=== PATIENT | female | born 1970 | race Caucasian/White ===

== ENCOUNTER 2018-08-09 08:17 | Emergency (ER) | payer OTHER ==
[2018-08-09 08:31] VITALS: BP 122/84; PULSE 107; TEMP 98.2; BMI 30.9
[2018-08-09] MEDS ORDERED: MAG HYDROX/AL HYDROX/SIMETH 30 ML UNIT-DOSE CUP PO ONE (09:00)
[2018-08-09] MEDS ORDERED: MAG HYDROX/AL HYDROX/SIMETH 30 ML UNIT-DOSE CUP ONE (09:03)
[2018-08-09] MEDS ORDERED: SODIUM CHLORIDE 1,000 ML IV STA (09:05)
[2018-08-09] MEDS ORDERED: ONDANSETRON *ODT* 4 MG TABLET SL ONE ×2 (09:05→10:48)
[2018-08-09] MEDS ORDERED: FAMOTIDINE 20 MG/50 ML IVPB 20 MG/50 ML MG IVPB ONE ×2 (09:05→09:31)
--- NOTE | 2018-08-09 09:13 | PDOC ---
History of Present Illness - General Chief Complaint: Diarrhea Stated Complaint: NAUSEA DIARRHEA Time Seen by Provider: 08/09/18 08:45 History Source: Patient Exam Limitations: Clinical Condition - History of Present Illness Initial Comments: 08/09/18 09:07 Patient with h/o IBS present with complains of 4 days h/o diarrhea and nausea consistent with her IBS . Patient report 4 episodes of non-bloody watery stools per day . report nausea but no vomiting . Pt also report intermittent epigastric pains from diarrhea. Denies fever, chills, weakness, palpitations, urinary frequency or dysuria. Pt report she was told by brother who also has IBS to come to ED for compazine which helps him with his IBS. Pt denies any other symptoms Timing/Duration: other (4 days) Past History - Past Medical History Allergies/Adverse Reactions: Allergies Allergy/AdvReac Type Severity Reaction Status Date / Time Penicillins Allergy Verified 08/09/18 08:27 Home Medications: Ambulatory Orders Loperamide HCl/Simethicone [Imodium Multi-Symptom Rel Cplt] 1 each PO Q8H PRN # 20 tablet 08/09/18 Ondansetron [Zofran Odt -] 4 mg SL TID PRN #21 od.tablet 08/09/18 Pantoprazole Sodium [Protonix -] 20 mg PO DAILY #7 tablet.ec 08/09/18 COPD: No CHF: No DVT: No Dementia: No HTN: Yes Thyroid Disease: Yes (HYPOTHYROID) - Immunization History Immunization Up to Date: No - Suicide/Smoking/Psychosocial Hx Smoking History: Never smoked Information on smoking cessation initiated: No Hx Alcohol Use: No Drug/Substance Use Hx: No Review of Systems - Review of Systems Able to Perform ROS?: Yes Is the patient limited [place] proficient: No Constitutional: No: Chills, Fever, Malaise HEENTM: No: Symptoms Reported Respiratory: No: Symptoms reported Cardiac (ROS): No: Symptoms Reported, See HPI, Chest Pain, Edema, Irregular Heart Rate, Lightheadedness, Palpitations, Syncope, Chest Tightness, Other ABD/GI: Yes: See HPI, Diarrhea, Nausea, Abdominal cramping (epigastric). No: Abdominal Distended, Abd. Pain w/ defecation, Blood Streaked Bowels, Constipated , Difficulty Swallowing, Poor Appetite, Poor Fluid Intake, Rectal Bleeding, Vomiting, Indigestion, Tarry Stools : No: Burning, Dysuria, Discharge, Frequency, Urgency Musculoskeletal: No: Back Pain Neurological: No: Headache, Numbness, Weakness, Dizziness All Other Systems: Reviewed and Negative *Physical Exam - Vital Signs Last Vital Signs Temp Pulse Resp BP Pulse Ox 98.2 F 107 H 16 122/84 98 08/09/18 08:28 08/09/18 08:28 08/09/18 08:28 08/09/18 08:28 08/09/18 08:28 - Physical Exam Comments: 08/09/18 10:09 GENERAL: Well developed, well nourished. Awake and alert. No acute distress. HEENT: Normocephalic, atraumatic. PERRLA, EOMI. No conjunctival pallor. Sclera are non-icteric. Moist mucous membranes. Oropharynx is clear. NECK: Supple. Full ROM. CARDIOVASCULAR: Regular rate and rhythm. No murmurs, rubs, or gallops. Distal pulses are 2+ and symmetric. PULMONARY: No evidence of respiratory distress. Lungs clear to auscultation bilaterally. No wheezing, rales or rhonchi. ABDOMINAL: Soft. mild epigastric tenderness. Non-distended. No rebound or guarding. No organomegaly. Normoactive bowel sounds. MUSCULOSKELETAL Normal range of motion at all joints. SKIN: Warm and dry. Normal capillary refill. No rashes. No cyanosis. NEUROLOGICAL: Alert, awake, appropriate. Gait is normal without ataxia. PSYCHIATRIC: Cooperative. Good eye contact. Appropriate mood General Appearance: Yes: Nourished, Appropriately Dressed. No: Apparent Distress ED Treatment Course - LABORATORY CBC & Chemistry Diagram: 08/09/18 09:46 08/09/18 09:46 Medical Decision Making - Medical Decision Making 08/09/18 09:10 Patient with h/o IBS present with complains of 4 days h/o diarrhea and nausea consistent with her IBS . Patient report 4 episodes of non-bloody watery stools per day . report nausea but no vomiting . Pt also report intermittent epigastric pains from diarrhea. Denies fever, chills, weakness, palpitations, urinary frequency or dysuria. Pt report she was told by brother who also has IBS to come to ED for compazine which helps him with his IBS. Pt denies any other symptoms Exam significant for mild epigastric TTP with increased diffused bowel sounds. no guarding or rebound on exam. DX: IBS vs cholecystitis vs gastroenteritis CBC, CMP lipase labs ordered. hydration with NS 1L ordered. zofran 4mg SL and pepcid for nausea and epigastric pain reassess after labs 08/09/18 11:36 cbc, cmp ,lipase labs wnl. UA with no significant findings. Patient report feeling better with zofran and hydration. Pt stable for discharge on maalox, loperamide, zofran and protonix with GI follow-up *DC/Admit/Observation/Transfer Diagnosis at time of Disposition: IBS (irritable bowel syndrome) Qualifiers: Irritable bowel syndrome type: with diarrhea Qualified Code(s): K58.0 - Irritable bowel syndrome with diarrhea - Discharge Dispostion Disposition: HOME Condition at time of disposition: Stable Decision to Admit order: No - Prescriptions Prescriptions: Loperamide HCl/Simethicone [Imodium Multi-Symptom Rel Cplt] 1 each PO Q8H PRN # 20 tablet PRN Reason: diarrhea and abdominal pain Ondansetron [Zofran Odt -] 4 mg SL TID PRN #21 od.tablet PRN Reason: nausea Pantoprazole Sodium [Protonix -] 20 mg PO DAILY #7 tablet.ec - Referrals Referrals: Claude Sutton MD [Staff Physician] - - Patient Instructions Printed Discharge Instructions: Irritable Bowel Syndrome Additional Instructions: Your labs was normal .Increase fluid intake. Take medications as prescribed. Follow-up with GI as soon as possible for management of IBS - Post Discharge Activity
[2018-08-09] MEDS ORDERED: ONDANSETRON *ODT* 4 MG TABLET ONE ×2 (09:31→10:52)
[2018-08-09] MEDS ORDERED: PANTOPRAZOLE 40 MG TABLET (FP) PO ONE (09:56)
[2018-08-09 10:00] LABS: BASO % 0.4 % (0-2.0); EOS % 1.5 % (0-4.5); HEMATOCRIT 40.1 % (32.4-45.2); HEMOGLOBIN 13.3 GM/dL (10.7-15.3); MCH 27.9 pg (25.7-33.7); MCHC 33.1 g/dl (32.0-36.0); MEAN CELL VOLUME 84.4 fl (80-96); MEAN PLT VOLUME 9.3 fl (7.5-11.1); MONO % 4.9 % (3.8-10.2); NEUT % 86.2 % (42.8-82.8); PLATELET COUNT 299 K/MM3 (134-434); RBC 4.75 M/mm3 (3.60-5.2); RDW 14.6 % (11.6-15.6); WHITE BLOOD COUNT 10.1 K/mm3 (4.0-10.0)
[2018-08-09] MEDS ORDERED: PANTOPRAZOLE 40 MG TABLET (FP) ONE (10:07)
[2018-08-09 10:52] LABS: EPI CELLS 5.6 /HPF (0-5/HPF); PH,URINE 5.5 (5.0-8.0); URINE APPEARANCE CLEAR; URINE BACTERIA 432.2 /hpf (NEGATIVE); URINE BILIRUBIN NEGATIVE (NEGATIVE); URINE CASTS 4 /lpf (0-8); URINE COLOR YELLOW; URINE GLUCOSE (UA) NEGATIVE (NEGATIVE); URINE KETONE TRACE (NEGATIVE); URINE LEUK ESTERASE NEGATIVE (NEGATIVE); URINE NITRITE NEGATIVE (NEGATIVE); URINE PROTEIN NEGATIVE (NEGATIVE); URINE UROBILINOGEN 0.2 mg/dL (0.2-1.0); URINE WBC 7 /hpf (0-5)
[2018-08-09 11:22] LABS: ALBUMIN 3.8 g/dl (3.4-5.0); ALK PHOS 99 U/L (45-117); ANION GAP 8 MMOL/L (8-16); BILIRUBIN,TOTAL 0.4 mg/dL (0.2-1); BLOOD UREA NITROGEN 12 mg/dL (7-18); CALCIUM 8.3 mg/dL (8.5-10.1); CHLORIDE 108 mmol/L (98-107); CO2 22 mmol/L (21-32); CREATININE 0.7 mg/dL (0.55-1.3); GLUCOSE,RANDOM 105 mg/dL (74-106); LIPASE 173 U/L (73-393); POTASSIUM 4.7 mmol/L (3.5-5.1); SGOT/AST 36 U/L (15-37); SGPT/ALT 22 U/L (13-61); SODIUM 137 mmol/L (136-145); TOT PROT 7.7 g/dl (6.4-8.2)
[2018-08-09 11:22] LABS: URINE RBC 5 /hpf (0-4)
== END 2018-08-09 13:00 | disposition home or self-care (01) ==
LOC: JER 08:17
DX: I10 Essential (primary) hypertension (principal); E03.9 Hypothyroidism, unspecified
CPT/HCPCS: 36415; 80053; 81003; 83690; 84703; 85025; 87086; 99281-25; Q0162